=== PATIENT | female | born 1950 | race Caucasian/White ===

== ENCOUNTER 2017-11-16 06:12 | Day surgery (SDC) | payer OTHER ==
[2017-11-16] MEDS: CYCLOGYL 2% OPTH OP PRN ×3 (06:40→06:50)
[2017-11-16] MEDS: TETRACAINE 0.5% UNIT-DOSE OP PRN ×2 (06:40→07:08)
[2017-11-16] MEDS: BETADINE OPTH PREP OP PRN ×2 (06:40→07:10)
[2017-11-16 06:50] VITALS: TEMP 98.1
[2017-11-16] MEDS ORDERED: LIDOCAINE 1% 20 ML MDV ID ONE (06:50)
[2017-11-16] MEDS ORDERED: DEX-MOXI-KETOR OPTH INJ 1/0.5/0.4 MG/ML IO ONE (07:04)
[2017-11-16] MEDS ORDERED: ZOFRAN 4 MG/2 ML IVP ONE (07:04)
[2017-11-16] MEDS ORDERED: BSS WITH EPINEPHRINE OP ONE (07:04)
[2017-11-16] MEDS ORDERED: LIDOCAINE 1%/PHENYLEPHRINE 1.5% BSS (SURGERY) INTRAOCULA ONE (07:04)
[2017-11-16] MEDS ORDERED: LIDOCAINE 1% 20 ML MDV ID STA (07:04)
[2017-11-16] MEDS ORDERED: BRIMONIDINE TARTRATE 0.2% OPTH SOL OP PRN (07:04)
[2017-11-16] MEDS ORDERED: SUBLIMAZE ONE (07:11)
[2017-11-16] MEDS ORDERED: VERSED ONE (07:11)
[2017-11-21 08:26] VITALS: BP 112/67
== END 2017-11-16 08:55 | disposition home or self-care (01) ==
LOC: SURG 06:12
PROVIDERS: ATTEND Ophthalmology
DX: H25.812 Combined forms of age-related cataract, left eye (principal)

== ENCOUNTER 2017-11-30 06:22 | Day surgery (SDC) | payer OTHER ==
[2017-11-30] MEDS: BETADINE OPTH PREP OP PRN ×2 (06:35→07:19)
[2017-11-30] MEDS: TETRACAINE 0.5% UNIT-DOSE OP PRN ×2 (06:35→07:19)
[2017-11-30] MEDS: CYCLOGYL 2% OPTH OP PRN ×3 (06:36→06:46)
[2017-11-30] MEDS ORDERED: DEX-MOXI-KETOR OPTH INJ 1/0.5/0.4 MG/ML IO ONE (06:46)
[2017-11-30] MEDS ORDERED: BRIMONIDINE TARTRATE 0.2% OPTH SOL OP PRN (06:46)
[2017-11-30] MEDS ORDERED: ZOFRAN 4 MG/2 ML IVP ONE (06:46)
[2017-11-30] MEDS ORDERED: BSS WITH EPINEPHRINE OP ONE (06:46)
[2017-11-30] MEDS ORDERED: LIDOCAINE 1%/PHENYLEPHRINE 1.5% BSS (SURGERY) INTRAOCULA ONE (06:46)
[2017-11-30] MEDS ORDERED: LIDOCAINE 1% 20 ML MDV ID STA (06:46)
[2017-11-30 06:55] VITALS: TEMP 98.4
[2017-11-30] MEDS ORDERED: VERSED ONE (07:22)
[2017-11-30] MEDS ORDERED: SUBLIMAZE ONE (07:22)
[2017-12-01 11:08] VITALS: BP 123/56
== END 2017-11-30 08:10 | disposition home or self-care (01) ==
LOC: SURG 06:22
PROVIDERS: ATTEND Ophthalmology
DX: H25.812 Combined forms of age-related cataract, left eye (principal)